=== PATIENT | female | born 1990 | race Caucasian/White ===

== ENCOUNTER 2018-06-01 18:06 | Emergency (ER) | payer SELFPAY ==
--- NOTE | 2018-06-01 21:13 | ER Document Report ---
ED Fever - General Chief Complaint: Fever Stated Complaint: HEAD AND BODY PAIN Time Seen by Provider: 06/01/18 20:42 Notes: This is a 28-year-old female with known history of bacterial endocarditis and sepsis in the past. Has been having fevers on and off for approximately 3 days. Seems to be getting worse. She has been septic in the past and both mother and patient were concerned that she may be getting sick like that again. Has some intermittent pain in the chest when she coughs but also complaining of pain in the abdomen. - HPI Onset: Last week Onset/Duration: Gradual, Constant Quality of pain: Achy Severity: Mild Pain Level: 1 Associated symptoms: Chills, Nonproductive cough, Fever, Headache - Related Data Allergies/Adverse Reactions: No Known Allergies Allergy (Verified 06/01/18 18:11) Past Medical History - General Information source: Patient, Parent - Social History Smoking Status: Current Every Day Smoker Cigarette use (# per day): Yes Frequency of alcohol use: None Drug Abuse: Heroin Lives with: Family Family History: Reviewed & Not Pertinent Patient has suicidal ideation: No Patient has homicidal ideation: No - Medical History Notes: Consistent for substance abuse/IV drug abuse, bacterial endocarditis, sepsis, mitral valve damage Renal/ Medical History: Denies: Hx Peritoneal Dialysis Review of Systems - Review of Systems Constitutional: Fever. denies: Malaise, Weakness EENT: denies: Eye pain, Double vision, Difficulty swallowing, Mouth pain, Mouth swelling Cardiovascular: Palpitations. denies: Chest pain, Heart racing, Syncope, Dizziness, Lightheaded, Edema Respiratory: Cough. denies: Short of breath, Stridor, Wheezing Gastrointestinal: Abdominal pain. denies: Diarrhea, Nausea, Vomiting Genitourinary: denies: Burning, Dysuria, Discharge, Flank pain, Hematuria Female Genitourinary: denies: , Vaginal discharge, Vaginal odor Musculoskeletal: denies: Back pain, Joint pain, Muscle pain, Muscle stiffness, Neck pain, Deformity Skin: denies: Dryness, Lesions, Rash Hematologic/Lymphatic: denies: Anemia, Blood clots, Easy bleeding, Easy bruising , Swollen glands Neurological/Psychological: denies: Confusion, Weakness, Seizure, Headaches, Numbness Physical Exam - Vital signs Vitals: Temp Pulse Resp BP Pulse Ox 98.6 F 117 H 16 114/62 98 06/01/18 18:37 12/10/18 18:37 06/01/18 18:37 06/01/18 18:37 06/01/18 18:37 Interpretation: Normal Notes: Heart rate 95. Oxygen saturation 100%. Respiratory rate 18. No acute distress. - General General appearance: Appears well, Alert - HEENT Head: Normocephalic, Atraumatic Eyes: Normal Pupils: PERRL - Respiratory Respiratory status: No respiratory distress Chest status: Nontender Breath sounds: Normal Chest palpation: Normal - Cardiovascular Rhythm: Regular Heart sounds: Normal auscultation Murmur: No - Abdominal Inspection: Normal Distension: No distension Bowel sounds: Normal Tenderness: Nontender Organomegaly: No organomegaly - Back Back: Normal, Nontender - Extremities General upper extremity: Normal inspection, Nontender, Normal color, Normal ROM , Normal temperature General lower extremity: Normal inspection, Nontender, Normal color, Normal ROM , Normal temperature, Normal weight bearing. No: Lexie's sign - Neurological Neuro grossly intact: Yes Cognition: Normal Orientation: AAOx4 Lutz Coma Scale Eye Opening: Spontaneous Benedicto Coma Scale Verbal: Oriented Benedicto Coma Scale Motor: Obeys Commands Benedicto Coma Scale Total: 15 Speech: Normal Motor strength normal: LUE, RUE, LLE, RLE Sensory: Normal - Psychological Associated symptoms: Normal affect, Normal mood - Skin Skin Temperature: Warm Skin Moisture: Dry Skin Color: Normal Course - Re-evaluation Re-evalutation: 06/01/18 23:01 Well-appearing female in no acute distress with fairly normal vital signs. I definitely can understand the concerns about her endocarditis in the setting of fevers. However, there could be any other reason why she did have a intermittent fever and abdominal discomfort. We will do basic workup at this time. 06/01/18 23:01 Bedside ultrasound performed: Cardiac ultrasound did not show any significant vegetations. No pericardial effusion. No deformity of the septal wall indicating significant right heart strain. Right upper quadrant ultrasound demonstrates no free fluid in the abdomen. The gallbladder does not show thickened gallbladder wall. There is no stone noted. There is no abnormalities of the neck of the gallbladder. There is no pericholecystic fluid. Please see attached pictures to chart. 06/01/18 23:06 At this time labs are fairly unremarkable with the exception possibility of UTI. Since we have an IV I am going to give her a dose of Rocephin IV. Will continue on antibiotics as an outpatient. Patient is comfortable with this plan. Will DC in stable condition. 06/01/18 23:10 Laboratory 06/01/18 06/01/18 06/01/18 20:20 20:20 20:20 WBC 10.5 RBC 3.95 Hgb 12.5 Hct 35.3 L MCV 89 MCH 31.7 MCHC 35.5 RDW 13.3 Plt Count 171 Seg Neutrophils % 71.6 Lymphocytes % 19.4 Monocytes % 7.5 Eosinophils % 1.2 Basophils % 0.3 Absolute Neutrophils 7.5 Absolute Lymphocytes 2.0 Absolute Monocytes 0.8 Absolute Eosinophils 0.1 Absolute Basophils 0.0 Sodium 137.8 Potassium 3.9 Chloride 104 Carbon Dioxide 20 L Anion Gap 14 BUN 10 Creatinine 0.66 Est GFR ( Amer) > 60 Est GFR (Non-Af Amer) > 60 Glucose 112 H Lactic Acid Calcium 9.1 Total Bilirubin 0.5 Direct Bilirubin 0.1 Neonat Total Bilirubin Not Reportable Neonat Direct Bilirubin Not Reportable Neonat Indirect Bili Not Reportable AST 20 ALT 11 Alkaline Phosphatase 42 Creatine Kinase 35 Troponin I < 0.012 NT-Pro-B Natriuret Pep 123 Total Protein 7.4 Albumin 4.3 Lipase Urine Color Urine Appearance Urine pH Ur Specific [place] Urine Protein Urine Glucose (UA) Urine Ketones Urine Blood Urine Nitrite Urine Bilirubin Urine Urobilinogen Ur Leukocyte Esterase Urine WBC (Auto) Urine RBC (Auto) Urine Bacteria (Auto) Squamous Epi Cells Auto Urine Mucus (Auto) Urine Ascorbic Acid Urine HCG, Qual Influenza A (Rapid) Influenza B (Rapid) 06/01/18 06/01/18 06/01/18 20:20 21:40 21:40 WBC RBC Hgb Hct MCV MCH MCHC RDW Plt Count Seg Neutrophils % Lymphocytes % Monocytes % Eosinophils % Basophils % Absolute Neutrophils Absolute Lymphocytes Absolute Monocytes Absolute Eosinophils Absolute Basophils Sodium Potassium Chloride Carbon Dioxide Anion Gap BUN Creatinine Est GFR ( Amer) Est GFR (Non-Af Amer) Glucose Lactic Acid < 0.5 L Calcium Total Bilirubin Direct Bilirubin Neonat Total Bilirubin Neonat Direct Bilirubin Neonat Indirect Bili AST ALT Alkaline Phosphatase Creatine Kinase Troponin I NT-Pro-B Natriuret Pep Total Protein Albumin Lipase 44.8 Urine Color Urine Appearance Urine pH Ur Specific [place] Urine Protein Urine Glucose (UA) Urine Ketones Urine Blood Urine Nitrite Urine Bilirubin Urine Urobilinogen Ur Leukocyte Esterase Urine WBC (Auto) Urine RBC (Auto) Urine Bacteria (Auto) Squamous Epi Cells Auto Urine Mucus (Auto) Urine Ascorbic Acid Urine HCG, Qual Influenza A (Rapid) NEGATIVE Influenza B (Rapid) NEGATIVE 06/01/18 06/01/18 21:40 21:40 WBC RBC Hgb Hct MCV MCH MCHC RDW Plt Count Seg Neutrophils % Lymphocytes % Monocytes % Eosinophils % Basophils % Absolute Neutrophils Absolute Lymphocytes Absolute Monocytes Absolute Eosinophils Absolute Basophils Sodium Potassium Chloride Carbon Dioxide Anion Gap BUN Creatinine Est GFR ( Amer) Est GFR (Non-Af Amer) Glucose Lactic Acid Calcium Total Bilirubin Direct Bilirubin Neonat Total Bilirubin Neonat Direct Bilirubin Neonat Indirect Bili AST ALT Alkaline Phosphatase Creatine Kinase Troponin I NT-Pro-B Natriuret Pep Total Protein Albumin Lipase Urine Color YELLOW Urine Appearance SLIGHTLY-CLOUDY Urine pH 6.0 Ur Specific [place] 1.024 Urine Protein NEGATIVE Urine Glucose (UA) NEGATIVE Urine Ketones 20 H Urine Blood NEGATIVE Urine Nitrite POSITIVE H Urine Bilirubin NEGATIVE Urine Urobilinogen NEGATIVE Ur Leukocyte Esterase NEGATIVE Urine WBC (Auto) 5 Urine RBC (Auto) 0 Urine Bacteria (Auto) TRACE Squamous Epi Cells Auto 3 Urine Mucus (Auto) MOD Urine Ascorbic Acid NEGATIVE Urine HCG, Qual NEGATIVE Influenza A (Rapid) Influenza B (Rapid) Chest X-Ray 06/01/18 21:31 IMPRESSION: Negative chest copyright 2011 [employer]- All Rights Reserved - Vital Signs Vital signs: Temp Pulse Resp BP Pulse Ox 98.6 F 117 H 16 114/62 98 06/01/18 18:37 06/01/18 18:37 06/01/18 18:37 06/01/18 18:37 06/01/18 18:37 - Laboratory Result Diagrams: 06/01/18 20:20 06/01/18 20:20 Laboratory results interpreted by me: 06/01/18 06/01/18 06/01/18 20:20 20:20 21:40 Hct 35.3 L Carbon Dioxide 20 L Glucose 112 H Lactic Acid < 0.5 L Urine Ketones Urine Nitrite 06/01/18 21:40 Hct Carbon Dioxide Glucose Lactic Acid Urine Ketones 20 H Urine Nitrite POSITIVE H Discharge - Discharge Clinical Impression: Urinary tract infection Qualifiers: Urinary tract infection type: site unspecified Hematuria presence: without hematuria Qualified Code(s): N39.0 - Urinary tract infection, site not specified Condition: Good Disposition: HOME, SELF-CARE Instructions: Urinary Tract Infection ([facility]), Fever ([facility]) Additional Instructions: In the event that symptoms are getting worse, fevers are getting worse, chest pain, shortness of breath or any other concerns please return for repeat evaluation. Prescriptions: Cefdinir 300 mg PO BID 7 Days #14 capsule
[2018-06-01 21:49] LABS: ABSOLUTE EOSINOPHILS # (AUTO) 0.1 10^3/uL (0.0-0.6); ABSOLUTE MONOCYTES (AUTO) 0.8 10^3/uL (0.1-1.4); ABSOLUTE NEUT (AUTO) 7.5 10^3/uL (1.7-8.2); BASOPHILS % (AUTO) 0.3 % (0-2); EOSINOPHILS % (AUTO) 1.2 % (0-6); HEMATOCRIT 35.3 % (36.0-47.0); HEMOGLOBIN 12.5 g/dL (12.0-15.5); LYMPHOCYTES % (AUTO) 19.4 % (13-45); MEAN CORPUSCULAR HEMOGLOBIN 31.7 pg (27.0-33.4); MEAN CORPUSCULAR HGB CONC 35.5 g/dL (32.0-36.0); MEAN CORPUSCULAR VOLUME 89 fl (80-97); MONOCYTES % (AUTO) 7.5 % (3-13); PLATELET COUNT 171 10^3/uL (150-450); RED BLOOD COUNT 3.95 10^6/uL (3.72-5.28); RED CELL DISTRIBUTION WIDTH 13.3 % (11.5-14.0); SEGMENTED NEUTROPHILS % (AUTO) 71.6 % (42-78); TOTAL CELLS COUNTED % (AUTO) 100 %; WHITE BLOOD COUNT 10.5 10^3/uL (4.0-10.5)
[2018-06-01 21:51] LABS: ALANINE AMINOTRANSFERASE 11 U/L (9-52); ALBUMIN 4.3 g/dL (3.5-5.0); ALKALINE PHOSPHATASE 42 U/L (38-126); ANION GAP 14 (5-19); ASPARTATE AMINO TRANSFERASE 20 U/L (14-36); BILIRUBIN,DIRECT 0.1 mg/dL (0.0-0.4); BILIRUBIN,TOTAL 0.5 mg/dL (0.2-1.3); BLOOD UREA NITROGEN 10 mg/dL (7-20); CALCIUM 9.1 mg/dL (8.4-10.2); CARBON DIOXIDE 20 mmol/L (22-30); CHLORIDE 104 mmol/L (98-107); CREATINE KINASE 35 U/L (30-135); GLUCOSE 112 mg/dL (75-110); POTASSIUM 3.9 mmol/L (3.6-5.0); SODIUM 137.8 mmol/L (137-145); TOTAL PROTEIN 7.4 g/dL (6.3-8.2)
[2018-06-01 22:07] LABS: A TYPE INFLUENZA AG NEGATIVE (NEGATIVE); B INFLUENZA AG NEGATIVE (NEGATIVE)
[2018-06-01 22:11] LABS: NT PRO BNP 123 pg/mL (<125)
[2018-06-01 22:12] LABS: TROPONIN I < 0.012 ng/mL
--- NOTE | 2018-06-01 22:30 | RADIOLOGY REPORT (SQ) ---
EXAM DESCRIPTION: XR CHEST 2 VIEWS COMPLETED DATE/TME: 06/01/2018 21:31 CLINICAL HISTORY: 28 years, Female, sob COMPARISON: None. NUMBER OF VIEWS: 2 TECHNIQUE: Frontal and lateral views of the chest LIMITATIONS: None. FINDINGS: The heart size is normal. Lungs are clear. No pneumothorax IMPRESSION: Negative chest copyright 2010 [employer]- All Rights Reserved
[2018-06-01 22:41] LABS: APPEARANCE,URINE SLIGHTLY-CLOUDY; BILIRUBIN,URINE NEGATIVE (NEGATIVE); COLOR,URINE YELLOW; GLUCOSE, URINE NEGATIVE (NEGATIVE); KETONES,URINE 20 mg/dL (NEGATIVE); LEUKOCYTE ESTERASE,URINE NEGATIVE (NEGATIVE); NITRITE,URINE POSITIVE (NEGATIVE); PROTEIN,URINE NEGATIVE (NEGATIVE); URINE SPECIFIC GRAVITY 1.024; UROBILINOGEN,URINE NEGATIVE mg/dL (<2.0)
[2018-06-01] MEDS ORDERED: KETOROLAC TROMETHAMINE INJ/PF 30 MG/1 ML SDV IV ONE (22:52)
[2018-06-01] MEDS ORDERED: CEFTRIAXONE INJ 1000 MG VIAL IV ONE (22:52)
[2018-06-01 23:46] VITALS: BP 91/57
--- NOTE | 2018-06-02 13:04 | EKG REPORT ---
SEVERITY:- BORDERLINE ECG - SINUS RHYTHM RIGHT AXIS DEVIATION BORDERLINE T ABNORMALITIES, INFERIOR LEADS : Confirmed by: Sheryl Carvalho MD 02-Jun-2018 13:04:13
== END 2018-06-01 23:56 | disposition home or self-care (01) ==
LOC: ER 18:06
DX: N39.0 Urinary tract infection, site not specified (principal); R50.9 Fever, unspecified; R51 Headache; M79.10 Myalgia, unspecified site; R07.9 Chest pain, unspecified; R10.9 Unspecified abdominal pain; F17.210 Nicotine dependence, cigarettes, uncomplicated
CPT/HCPCS: 93005; 99284; 96375; 96365; 36415; 87040; 87086; 82550; 83690; 85025; 81025; 87088; 80053; 81001; 84484; 83605; 87804; 83880; 71046; 93010; J1885; J0696; 87186

== ENCOUNTER 2020-03-09 18:42 | Outpatient (CLI) | payer MEDICAID ==
[2020-03-09 20:02] LABS: APPEARANCE,URINE SLIGHTLY-CLOUDY; BILIRUBIN,URINE NEGATIVE (NEGATIVE); COLOR,URINE YELLOW; GLUCOSE, URINE NEGATIVE (NEGATIVE); KETONES,URINE NEGATIVE (NEGATIVE); LEUKOCYTE ESTERASE,URINE NEGATIVE (NEGATIVE); NITRITE,URINE POSITIVE (NEGATIVE); PROTEIN,URINE 30 mg/dL (NEGATIVE); URINE SPECIFIC GRAVITY 1.021; UROBILINOGEN,URINE NEGATIVE mg/dL (<2.0)
[2020-03-09 20:16] LABS: URINE AMPHETAMINES SCREEN NEGATIVE; URINE BARBITURATES SCREEN NEGATIVE; URINE BENZODIAZEPINES SCREEN NEGATIVE; URINE COCAINE SCREEN NEGATIVE; URINE MARIJUANA (THC) SCREEN NEGATIVE; URINE METHADONE SCREEN NEGATIVE; URINE PHENCYCLIDINE SCREEN NEGATIVE
[2020-03-09] MEDS ORDERED: LIDOCAINE 1% INJ-PF (10 MG/ML) 30 ML SDV INFIL ONE (20:28)
[2020-03-09] MEDS ORDERED: CEFTRIAXONE INJ 1000 MG VIAL IM ONE (20:28)
[2020-03-09] MEDS ORDERED: CEFTRIAXONE INJ 1000 MG VIAL ONE (20:41)
[2020-03-09] MEDS ORDERED: LIDOCAINE 1% INJ-PF (10 MG/ML) 30 ML SDV ONE (20:43)
--- NOTE | 2020-03-09 21:16 | RADIOLOGY REPORT (SQ) ---
EXAM DESCRIPTION: Third trimester OB ultrasound. CLINICAL HISTORY: 29 years Female; placenta and well being TECHNIQUE: Transabdominal obstetrical ultrasound was performed. COMPARISON: None. FINDINGS: Number of fetuses: Single position: Dani breech Amniotic fluid: 22.0 cm. Largest pocket 6.50 cm. Cervix: Closed. 2.9 cm in length Placenta: Posterior. Grade 2. HR: 141 bpm Biometry: BPD: 6.87 cm, 27 weeks four days, 86th percentile HC: 25.09 cm, 27 weeks two days, 63rd percentile AC: 24.19 cm, 28 weeks three days, 95th percentile FL: 4.76 cm, 25 weeks six days, 28th percentile EFW: 1074 g, 65th percentile HC/AC: 1.04 Composite Gestational Age: 27 weeks six days. Estimated delivery date 06/06/2020 IMPRESSION: 1. Single living intrauterine with gestational age of 27 weeks two days and estimated delivery date of 06/06/2020. 2. Borderline high amniotic fluid volume.
== END 2020-03-09 21:55 | disposition home or self-care (01) ==
LOC: LC 18:42
PROVIDERS: ATTEND Obstetrics & Gynecology Gynecology
DX: Z04.3 Encounter for examination and observation following other accident (principal); W19.XXXA Unspecified fall, initial encounter; Z3A.27 27 weeks gestation of pregnancy; Z87.891 Personal history of nicotine dependence
CPT/HCPCS: 59899; 81001; 80307; 76815; J3490; J0696